=== PATIENT | female | born 1955 | race Caucasian/White ===

== ENCOUNTER → 2021-07-01 09:58 | Outpatient (CLI) | payer OTHER, SELFPAY ==
--- NOTE | 2021-07-01 10:01 | DI.RAD.S_ITS ---
PROCEDURE: XR FOOT RT MIN 3V INDICATIONS: Foot injury TECHNIQUE: 3 views of the foot were acquired. COMPARISON: [facility], [place], XR ANKLE RT MIN 3V, 07/01/2021, 9:51. FINDINGS: Bones: There is a mildly displaced calcaneal fracture, with intra-articular involvement of the talocalcaneal joint. No additional fractures are detected. Prior bunionectomy change can be seen. Age-appropriate bony degenerative changes are seen. Incidental note is made of a bipartite medial sesamoid bone. Soft tissues: No tibiotalar joint effusion. Achilles tendon appears normal. IMPRESSION: Mildly displaced calcaneus fracture, with intra-articular involvement. Dictated by: Pal Corbett M.D. on 07/01/2021 at 10:06 Approved by: Pal Corbett M.D. on 07/01/2021 at 10:07
--- NOTE | 2021-07-01 10:01 | DI.RAD.S_ITS ---
PROCEDURE: XR ANKLE RT MIN 3V INDICATIONS: Ankle injury TECHNIQUE: 3 views of the ankle were acquired. COMPARISON: [facility], , XR FOOT RT MIN 3V, 07/01/2021, 9:51. FINDINGS: Bones: There is a mildly displaced calcaneal fracture. There is intra-articular involvement seen involving the tibiotalar joint. No additional fractures are seen. There is focal irregularity seen involving the medial talar dome, with lucency. Generalized degenerative changes are seen. Soft tissues: No significant soft tissue abnormality is seen. IMPRESSION: Mildly displaced calcaneal fracture, with intra-articular involvement. High suspicion for osteochondral lesion of the medial talar dome. When clinically appropriate, and ankle MRI would be recommended for further evaluation of this finding. Dictated by: Pal Corbett M.D. on 07/01/2021 at 10:07 Approved by: Pal Corbett M.D. on 07/01/2021 at 10:08
== END ==
PROVIDERS: Referring Provider Physician Assistant; Visit Provider Physician Assistant
DX: S92.061A Displaced intraarticular fracture of right calcaneus, initial encounter for closed fracture (principal); M25.571 Pain in right ankle and joints of right foot; M79.671 Pain in right foot; X58.XXXA Exposure to other specified factors, initial encounter
CPT/HCPCS: 73610; 73630